=== PATIENT | male | born 1965 | race Caucasian/White ===

== ENCOUNTER 2022-11-24 07:39 | Emergency (ER) | payer BC, SELFPAY ==
--- NOTE | ~2022-11-24 | XR_ITS ---
XR ribs LT 2V w CXR 2V DATE: 11/24/2022 10:10 INDICATION: Fall. Posterolateral left rib cage pain TECHNIQUE: PA and lateral chest. 3 views of the left ribs. COMPARISON: None FINDINGS: Normal heart size. Minimal aortic unfolding. No hilar or mediastinal enlargement. Mild elevation of the right diaphragm. Mild atelectasis at the lung bases. The lungs otherwise appear clear. No pleural effusion or pulmonary vascular congestion or pneumothorax. Diffuse osteopenia. No left rib fracture or bone destruction is detected. IMPRESSION: New detected left rib fracture Mild atelectasis at the lung bases Reviewed, dictated and finalized at location B.
--- NOTE | ~2022-11-24 | XR_ITS ---
EXAMINATION: XR elbow LT min 3V DATE: 11/24/2022 09:03 INDICATION: Left elbow pain. Fall. TECHNIQUE: 4 views of left elbow were obtained. COMPARISON: None. FINDINGS: There is a comminuted fracture of olecranon of proximal ulna. The main distal fracture frag ment demonstrates 2.8 cm distraction and rotation. The radiocapitellar joint is normal. No elbow join t effusion. There is posterior soft tissue swelling. IMPRESSION: 1. Comminuted fracture of olecranon of proximal ulna. Reviewed, dictated and finalized at location A.
--- NOTE | ~2022-11-24 | XR_ITS ---
EXAMINATION: XR wrist LT min 3V DATE: 11/24/2022 09:03 INDICATION: Left wrist pain. TECHNIQUE: 4 views of left wrist were obtained. COMPARISON: None. FINDINGS: Bone alignment is normal. No fracture. There is mild osteoarthritis of first carpometacarpa l joint. IMPRESSION: 1. Mild osteoarthritis of first carpometacarpal joint. Reviewed, dictated and finalized at location A.
--- NOTE | ~2022-11-24 | XR_ITS ---
XR knee RT min 4V DATE: 11/24/2022 10:09 INDICATION: Fall. Anterior abrasion. Pain, swelling. TECHNIQUE: 4 views including crosstable lateral COMPARISON: None FINDINGS: Plate and screws of the proximal tibia. Osteopenia. Old healed fracture of the fibular neck. No recent fracture or dislocation, periosteal reaction or ash[place] ne destruction is detected. Mild periarticular spurring of the patella. Joint spaces appear relatively well preserved. No radiopa que intra-articular loose body or chondrocalcinosis. IMPRESSION: Mild patellofemoral osteoarthritis Osteopenia Postoperative change of tibia No recent fracture or dislocation or joint effusion Reviewed, dictated and finalized at location B.
--- NOTE | ~2022-11-24 | XR_ITS ---
XR knee LT min 4V DATE: 11/24/2022 10:10 INDICATION: Fall. Pain, swelling, abrasions of left knee TECHNIQUE: 4 views COMPARISON: None FINDINGS: No fracture or dislocation, periosteal reaction or bone destruction or joint effusion. Join t spaces are well preserved. No radiopaque interarticular loose body or chondrocalcinosis. IMPRESSION: No significant abnormality Reviewed, dictated and finalized at location B. IMPRESSION: No significant abnormality
--- NOTE | ~2022-11-24 | XR_ITS ---
EXAMINATION: XR shoulder LT min 2V DATE: 11/24/2022 09:03 INDICATION: Left shoulder injury. TECHNIQUE: 4 views of left shoulder were obtained. COMPARISON: Left shoulder radiographs 04/13/2015 FINDINGS: Bone alignment is normal. No fracture. There is mild osteoarthritis of glenohumeral joint a nd moderate osteoarthritis of acromioclavicular joint. IMPRESSION: 1. Polyarticular osteoarthritis. Reviewed, dictated and finalized at location A.
--- NOTE | ~2022-11-24 | XR_ITS ---
EXAMINATION: XR wrist RT min 3V DATE: 11/24/2022 09:03 INDICATION: Right wrist pain. TECHNIQUE: 4 views of right wrist were obtained. COMPARISON: None. FINDINGS: There is an old healed fracture of distal radius with volar plate and screws. The distal ar ticular surface demonstrates 16 degrees dorsal tilt. There is an avulsion fracture of ulnar styloid w ith nonunion. There is an age-indeterminate avulsion fracture of dorsal pole of triquetrum. Joint spa kaci are normal. IMPRESSION: 1. Age-indeterminate avulsion fracture of dorsal pole of triquetrum. Reviewed, dictated and finalized at location A.
--- NOTE | ~2022-11-24 | XR_ITS ---
XR elbow RT min 3V DATE: 11/24/2022 10:09 INDICATION: Fall. Pain. TECHNIQUE: 5 views COMPARISON: None FINDINGS: No fracture or dislocation or joint effusion. No periosteal reaction or bone destruction. J oint spaces are well preserved. IMPRESSION: Negative Reviewed, dictated and finalized at location B. IMPRESSION: Negative
[2022-11-24 07:40] VITALS: BP 135/83; PULSE 85; RESP 18; TEMP 36.7; O2SAT 97
[2022-11-24 09:04] VITALS: BP 134/73; PULSE 81; RESP 18; O2SAT 97
--- NOTE | 2022-11-24 09:27 | ED.FALL ---
HPI - Fall General Chief Complaint: Fall Stated Complaint: fall Time Seen by Provider: 11/24/22 08:59 Source: patient Mode of arrival: ambulatory Limitations: no limitations History of Present Illness HPI Narrative: Patient is a 57-year-old male, with PMH of Parkinson's Disease and HTN, who presents to ED with report of a fall. Patient reports he was walking his dogs this morning and had the dog leash wrapped around his right wrist. He tripped and fell and was unable to let go of the dog leash. His dogs took off running and dragged him along the road. A neighbor nearby saw the incident and was able to help the patient up off the ground. Patient complains of pain to his left shoulder, left elbow, bilateral wrists, left knee, left posterior chest wall. He did sustain abrasions to his knees, left elbow, right knuckles. He did not hit his head or lose consciousness. He denies any neck or back pain. Denies difficulty breathing, anterior chest pain. Denies numbness or tingling. Tetanus status unknown. Related Data Allergies Allergy/AdvReac Type Severity Reaction Status Date / Time No Known Allergies Allergy Mild Verified 11/24/22 08:17 Review of Systems Review of Systems: CONSTITUTIONAL: Denies fever, chills, or sweats. EYES: Denies visual changes. CARDIOVASCULAR: Denies chest pain. RESPIRATORY: Denies dyspnea. GASTROINTESTINAL: Denies abdominal pain, nausea, vomiting. MUSCULOSKELETAL: See HPI. NEUROLOGIC: See HPI. All systems reviewed & are unremarkable except as noted in HPI and below PMFSH Past Medical History Medical History (Updated 11/24/22 @ 12:18 by Mirta Mayer PA-C) HTN (hypertension) Parkinson's disease Exam Narrative: GENERAL: Well appearing, obese with BMI of 37.7, non-toxic, in no acute distress. HEAD: Normocephalic, atraumatic. NECK: Supple. No adenopathy, no masses. RESPIRATORY: Airway patent, respirations nonlabored. Clear to auscultation bilaterally, no rales, rhonchi, wheezing. No splinting. CARDIOVASCULAR: Regular rate and rhythm without murmurs, rubs, or gallops. Peripheral pulses 2+ and equal bilaterally. ABDOMINAL: Soft, nontender, nondistended, no hepatosplenomegaly. Normoactive BS. Abrasion present across upper abdomen, nontender. MUSCULOSKELETAL: Limited range of motion of left upper extremity/left elbow due to pain. Large area of swelling and ecchymosis present to left proximal forearm and elbow with diffuse tenderness to palpation, particularly over olecranon. Overlying skin abrasions/road rash. No deeper lacerations. Sensation intact. No significant focal tenderness to palpation over left shoulder. Mild tenderness to palpation to distal radius and ulna of right wrist, particularly over distal ulna/lateral wrist. Abrasions to PIP joints of R hand, no deeper wounds. Abrasions to bilateral knees, left > right. Mild tenderness over superior anterior left knee joint spaces. No midline cervical, thoracic, lumbar spinal tenderness. No bony step-offs. Mild tenderness over left posterior lateral chest wall/rib cage. No palpable deformities. SKIN: Warm, dry, normal color. No rashes. NEURO: A&O X3. Speech clear. Cranial nerves II-XII grossly intact. Tremor of BUEs, consistent with Parkinson's. PSYCHIATRIC: Appropriate mood and affect. Normal interaction. Course Vital Signs Vital signs: Vital Signs Temperature 98.0 F 11/24/22 07:40 Pulse Rate 85 11/24/22 07:40 Respiratory Rate 18 11/24/22 07:40 Blood Pressure 135/83 11/24/22 07:40 Pulse Oximetry 97 11/24/22 07:40 Oxygen Delivery Room Air 11/24/22 07:40 Temperature 98.0 F 11/24/22 07:40 Pulse Rate 75 11/24/22 12:02 Respiratory Rate 18 11/24/22 12:02 Blood Pressure 102/63 11/24/22 12:02 Pulse Oximetry 95 11/24/22 12:02 Oxygen Delivery Room Air 11/24/22 07:40 MDM - Fall MDM Narrative Medical decision making narrative: Patient presented to ED status post ground-level fall
--- NOTE | 2022-11-24 09:38 | PC.NURSE ---
pt to xray via stretcher at this time
[2022-11-24] MEDS: ACETAMINOPHEN 500 MG TABLET 1000 MG PO (10:11)
[2022-11-24] MEDS: ONDANSETRON INJ 4 MG/2 ML VIAL IV PUSH (10:14)
[2022-11-24] MEDS: MORPHINE SULFATE (*CRX) 4 MG/ML INJ IV PUSH (10:15)
[2022-11-24] MEDS: TETANUS,DIPHTHERIA,AC PERTUSSIS ADULT (0.5 ML) BOOSTRIX IM (10:19)
[2022-11-24 10:22] VITALS: BP 128/63; PULSE 76; RESP 18; O2SAT 94
[2022-11-24 10:34] LABS: Basophils Absolute Auto 0.1 K/mm3 (0.0-0.1); Basophils Percent Auto 0.4 % (0.2-1.2); Eosinophils Percent Auto 0.2 % (0-4.4); Hematocrit 44.7 % (42.0-52.0); Immature Granulocyte Absolute 0.08 K/mm3 (0.00-0.031); Immature Granulocyte Percent A 0.6 % (0-0.5); Lymphocytes Absolute Auto 1.23 K/mm3 (0.9-3.2); Lymphocytes Percent Auto 9.3 % (18.3-44.2); Mean Corpuscular HGB Conc 33.6 g/dl (32-36); Mean Corpuscular Volume 95.3 fl (80-100); Mean Platelet Volume 9.9 fl (7.4-10.4); Monocytes Percent Auto 7.5 % (2.6-8.5); Neutrophils Absolute Auto 10.9 K/mm3 (1.3-6.7); Platelet Count Result 266 k/mm3 (150-375); Red Blood Count 4.69 M/mm3 (4.6-6.20); Red Cell Distribution Width 12.6 % (11.5-14.5); White Blood Count 13.2 K/mm3 (4.5-10.0)
[2022-11-24 10:37] LABS: Anion Gap 10 mmol/L (8-16); Blood Urea Nitrogen 22 mg/dL (9-20); Calcium 8.8 mg/dL (8.4-10.2); Carbon Dioxide 27 mmol/L (22-30); Chloride 102 mmol/L (98-107); Estimated CRCL calculation 87 ml/min; Estimated Glomerular Filt Rate > 60; Glucose 119 mg/dL (65-110); Potassium 3.8 mmol/L (3.4-5.0); Sodium 139 mmol/L (137-145)
[2022-11-24 10:49] LABS: INR 1.1
[2022-11-24 10:50] LABS: Partial Thromboplastin Time 29.1 SECONDS (22.3-36.8)
[2022-11-24 11:17] VITALS: BP 110/63; PULSE 76; RESP 18; O2SAT 98
[2022-11-24 12:02] VITALS: BP 102/63; PULSE 75; RESP 18; O2SAT 95
--- NOTE | 2022-11-24 13:07 | PCWOUND ---
Received consult for skin abrasions/road rash over left elbow. Wound RN out of office when referral sent at 1141. Called down to ER to see if patient was still here, patient has already been discharged home.
== END 2022-11-24 13:17 | disposition home or self-care (01) ==
PROVIDERS: Emergency Provider Physician Assistant
DX: S52.022A Displaced fracture of olecranon process without intraarticular extension of left ulna, initial encounter for closed fracture (principal); S62.111A Displaced fracture of triquetrum [cuneiform] bone, right wrist, initial encounter for closed fracture; S50.312A Abrasion of left elbow, initial encounter; Z23 Encounter for immunization; I10 Essential (primary) hypertension; G20 Parkinson's disease; M19.012 Primary osteoarthritis, left shoulder; M17.11 Unilateral primary osteoarthritis, right knee; M85.88 Other specified disorders of bone density and structure, other site; M19.032 Primary osteoarthritis, left wrist; W01.0XXA Fall on same level from slipping, tripping and stumbling without subsequent striking against object, initial encounter
CPT/HCPCS: 36415; 71046; 71100; 73030; 73080; 73110; 73564; 80048; 85025; 85610; 85730; 90471; 90715; 96374; 96375; 99284; A4565; A9270; J2270; J2405

== ENCOUNTER 2022-11-28 13:07 | Outpatient (CLI) | payer BC, SELFPAY ==
--- NOTE | 2022-11-28 14:35 | ECG_ITS ---
Measurements Intervals [place] Rate: 68 P: 19 IN: 157 QRS: 14 QRSD: 100 T: 18 QT: 389 QTc: 414 Interpretive Statements SINUS RHYTHM BASELINE ARTIFACT- I, II, III, AVR, AVL, AVF NORMAL ECG NO PREVIOUS ECG AVAILABLE FOR COMPARISON Electronically Signed On 11-28-2022 14:49:53 CDT by Narciso Gregorio D.O.
== END 2022-11-28 13:08 | disposition home or self-care (01) ==
PROVIDERS: PCP Family Medicine; Visit Provider Orthopaedic Surgery
DX: I10 Essential (primary) hypertension (principal)
CPT/HCPCS: 93005